=== PATIENT | male | born 2000 | race Hispanic/Latino ===

== ENCOUNTER 2024-01-04 17:08 | Emergency (ER) | payer BC, MEDICAID ==
[~2024-01-04] VITALS: Ht 180.3 cm; Wt 141.6 kg
--- NOTE | 2024-01-04 17:46 | ERN ---
ED Note History of Present Illness Stated Complaint: LEFT BACK PAIN AFTER LIFTING WOOD Chief Complaint: Low Back Pain/Injury Time Seen by MD: 17:15 Time Seen by Midlevel: 17:20 Dictation: 23-year-old male with no past medical history coming in complaining of mid back pain onset Wednesday. Patient states he was picking up would in started with back pain yesterday. Patient denies any hematuria or dysuria. Denies any incontinence, weakness, numbness, or tingling. Allergies: Coded Allergies: No Known Allergies (Unverified Allergy, Unknown, 01/04/24) Home Meds Active Scripts Naproxen (Naproxen) 250 Mg Tablet, 1 TAB PO BID for pain for 15 Days, #30 TAB 0 Refills Prov:NICK CAMPOS NP 01/04/24 Past Medical History Past Medical History: No Pertinent History Surgical History: Other Surgical History Other: HYDROCELE Review of System Dictation Constitutional: Negative for fever,chills, and weight loss Eyes: Negative for injury, pain,redness, and discharge ENT: Negative for injury,pain or swelling Cardiovascular: Negative for chest pain, palpitations, and edema Respiratory: Negative for shortness of breath, cough, and wheezing, Abdomen/GI: Negative for abdominal pain, nausea, vomiting, diarrhea, and constipation Back: Negative for injury and pain : Negative for injury, bleeding and discharge MS/Extremity: Negative for injury and deformity, mid back pain Skin: Negative for rash, and discoloration Neuro: Negative for headache, weakness, numbness, tingling, and seizure Psych: Negative for suicide ideation, homicidal ideation, and hallucinations Review of Systems: was completed Initial Vital Sign VS Vital Signs Date Time Temp Pulse Resp B/P (MAP) Pulse Ox O2 Delivery O2 Flow Rate FiO2 01/04/24 17:10 98.6 74 16 145/82 97 Room Air 0 01/04/24 18:15 21 Physical Exam Dictation General: awake, alert, NAD Head/Face: Normocephalic, atraumatic Eyes: PERRL, EOMI, vision at baseline ENT: oral cavity clear, TMs clear, no signs of infection Neck: Trachea midline, supple, no nuchal rigidity Cardiovascular: RRR, normal S1/S2, No MRGs, no JVD Respiratory: CTAB, no respiratory distress, No rales or wheezes Abdomen: Soft, non-tender, non-distended, normal bowel sounds, no guarding or rebound. Skin: Warm, dry, normal turgor, no rash MS/Extremity: Pulses equal, no cyanosis, neurovascular intact, FROM, no CVA tenderness Neuro: COAx4, GCS 15, strength 5/5, CN 2-12 intact, normal cerebellar exam, normal gait, Psych: Normal behavior, mood, and affect normal Results (Laboratory/Radiology) Labs Reviewed?: Yes X-RAY Comment: [facility] [address] [place] [address] IMAGING REPORT Signed PATIENT: REAL MAC MR#: [id number] : 2000 SEX: M AGE: 23 LOCATION: [facility] ORDER 31 STATUS: REG ER REPORT#: [id number] SERVICE 15 REASON: back pain ORDERING PHYSICIAN: NICK CAMPOS NP PROCEDURE: THOR 2VW - THORACIC SPINE 2VWS Exam Type: THORACIC SPINE SERIES History: back pain Comparison: none Findings: The thoracic spine is well visualized. All pedicles and spinous processes are intact. No fracture or bony lesions are identified. The vertebral bodies are well aligned, and the disc spaces are normal. The visualized soft tissues are unremarkable. IMPRESSION: NORMAL THORACIC SPINE. DICTATED BY: HIEN CRUZ MD DATE: 01/04/241827 ELECTRONICALLY SIGNED BY: HIEN CRUZ MD DATE: 01/04/24 183 ED Course ED Course Orders Procedure Category Date Status Time Hydrocodone/Apap PHA 01/04/24 Complete 5/325 (Ney 5/325mg) 17:16 Methocarbamol PHA 01/04/24 Complete (Methocarbamol) 17:16 Ketorolac 60mg/2ml PHA 01/04/24 Complete (Toradol 60mg/2ml) 17:16 Thoracic Spine 2vws RAD 01/04/24 Resulted 17:16 Current Medications Medications (Trade) Dose Ordered Sig/Mariella Route PRN Reason Start Time Stop Time Status Last Admin Dose Admin Acetaminophen/ Hydrocodone Bitart (NORco 5/325MG) 1 tab ONCE STAT PO 01/04/24 17:16 01/04/24 17:33 DC 01/04/24 18:34 Ketorolac Tromethamine (toRADol 60MG/ 2ML) 15 mg ONCE STAT IM 01/04/24 17:16 01/04/24 17:33 DC 01/04/24 18:34 Methocarbamol (methoCARBamol) 1,000 mg ONCE STAT PO 01/04/24 17:16 01/04/24 17:33 DC 01/04/24 18:33 Vital Signs Date Time Temp Pulse Resp B/P (MAP) Pulse Ox O2 Delivery O2 Flow Rate FiO2 01/04/24 18:15 98.6 70 16 140/80 98 Room Air* 0 21 01/04/24 17:10 98.6 74 16 145/82 97 Room Air 0 Medical Decision Making MDM MDM: 23-year-old male with no past medical history coming in complaining of mid back pain onset Wednesday. Patient states he was picking up would in started with back pain yesterday. Patient denies any hematuria or dysuria. Denies any incontinence, weakness, numbness, or tingling. X-ray shows no can find interpreted by me. After pain medication patient states feels better. Will prescribe indication for pain management and get excuse for work for the next 2-3 days. Educated to follow up with PCP in 1-2 days and to return to the ER if symptoms worsen. Patient verbalized understanding, answered all questions. Differential diagnosis: Back pain, muscle spasm Rationale: Tests considered and ordered secondary to shared decision making include: Previous outside records reviewed: Old ER visits. Risk of complication and/or morbidity or mortality of patient management: None Medications-Per medication reconciliation Need for hospitalization: Patient does not meet criteria for hospitalization. Need for emergency major/minor surgery: No There are no social concerns with this patient. Prescription drug management Prescriptions will include symptomatic care Patient's prior external medical records from other ER visits were reviewed by me as indicated. Prior testing and results from previous visits were reviewed. Prior tests were taken into account with medical decision making and resource utilization, independent historian/historians were used to obtain complete medical history. I independently interpreted the test that were performed, results were reviewed by me and considered findings on radiology if ordered. Medical management and examination interpretation discussions were had by me with other qualified healthcare professionals as indicated for the patient's care. DX & DISP Disposition: Discharge Departure Impression: Primary Impression: Back pain Condition: Stable Scripts Naproxen (Naproxen) 250 Mg Tablet 1 TAB PO BID for pain for 15 Days, #30 TAB 0 Refills Prov: NICK CAMPOS NP 01/04/24 Referrals: SELF,REFERRAL (PCP) Time of Disposition: 18:40 I have reviewed the case, and I agree with, Diagnosis and Plan ATTESTATION BY PHYSICIAN I PERFORMED THE SUBSTANTIVE PORTION OF THE VISIT. I HAVE REVIEWED AND PERSONALLY MADE AND APPROVED THE MANAGEMENT PLAN THAT IS DOCUMENTED IN THE NOTE BY MYSELF FOR THE A PP. I ACKNOWLEDGED FOR RESPONSIBILITY FOR THE PATIENT'S MANAGEMENT PLAN. NICK CAMPOS NP Jan 04, 2024 17:46 RUBY SANDHU MD Jan 05, 2024 07:48
[2024-01-04 18:15] VITALS: BP 140/80; PULSE 70; RESP 16; TEMP 98.6; O2SAT 98
--- NOTE | 2024-01-04 18:31 | HMCIMG ---
Exam Type: THORACIC SPINE SERIES History: back pain Comparison: none Findings: The thoracic spine is well visualized. All pedicles and spinous processes are intact. No fracture or bony lesions are identified. The vertebral bodies are well aligned, and the disc spaces are normal. The visualized soft tissues are unremarkable. IMPRESSION: NORMAL THORACIC SPINE.
[2024-01-04] MEDS: methoCARBamol 500 MG TABLET PO STA (18:33)
[2024-01-04] MEDS: HYDROcodone/APAP 5/325 1 TAB TABLET PO STA (18:34)
[2024-01-04] MEDS: ketOROlac 60 MG VIAL (30MG/ML) IM STA (18:34)
[2024-01-04] MEDS ORDERED: NAPR-1196 PO (18:40)
== END 2024-01-04 18:55 | disposition home or self-care (01) ==
LOC: EDH 17:08
DX: M54.50 Low back pain, unspecified (principal)
CPT/HCPCS: 99284; 72070; 96372; J1885